=== PATIENT | male | born 1955 | race Caucasian/White ===

== ENCOUNTER 2022-04-11 12:14 | Day surgery (SDC) | payer MEDICARE, SELFPAY ==
[2022-04-06 15:07] VITALS: BMI 26.9
[2022-04-11 12:38] VITALS: BP 150/96; PULSE 57; RESP 18; TEMP 36.5; O2SAT 98
[2022-04-11] MEDS: Lactated Ringers 1,000 ML 100 ML IVCONT (12:45)
--- NOTE | 2022-04-11 13:19 | HO.ANESPROP2 ---
[facility] Past Medical History Medical History Elevated cholesterol HTN (hypertension) Family History Family history of problems with anesthesia: No Surgical History Surgical History H/O colonoscopy Hx of tonsillectomy History of Problems with Anesthesia: No Social History Social History Patient Tobacco Use Status: Current everyday Tobacco user Tobacco use type: Cigar Cigarettes Per Day: 5 Use of substances other than those prescribed or required for medical reasons: No Are you DNR?: No Advance Directives: No Advance Directives Information Provided: Yes Advance Directives on File: No Meds Allergies Allergy/AdvReac Type Severity Reaction Status Date / Time No Known Allergies Allergy Unverified 04/02/20 16:30 [No Known Allergies*] Active Medications: Current Medications Lactated Ringer's (Lr) 1,000 mls @ 100 mls/hr IVCONT .Q10H BLAYNE Last Admin: 04/11/22 12:45 Dose: 100 mls/hr Ondansetron HCl (Ondansetron Hcl 4 Mg/2 Ml Vial) 4 mg IVPUSH ONCE PRN PRN Reason: Nausea and Vomiting Sodium Biphosphate/Sodium Phosphate (Sodium Phosphate,[place]-Dibasic 133 Ml Enema) 133 ml [place] ONCE PRN PRN Reason: Poor Colonoscopy Prep Results Home Medications Medication Instructions Recorded Confirmed Last Taken Type amlodipine 5 mg-atorvastatin 10 mg 1 tab PO DAILY 04/06/22 04/06/22 04/11/22 History tablet atorvastatin 40 mg tablet 40 mg PO BEDTIME 04/06/22 04/06/22 04/11/22 History lisinopril 40 mg tablet 40 mg PO DAILY 04/06/22 04/06/22 04/11/22 History Exam Exam Date and Time: April 11, 2022 1319 Height,Weight and Vital Signs: Height 5 ft 11.5 in Weight 88.904 kg Last Vital Signs Temp 97.7 F 04/11/22 12:38 Pulse 57 04/11/22 12:38 Resp 18 04/11/22 12:38 BP 150/96 H 04/11/22 12:38 Pulse Ox 98 04/11/22 12:38 O2 Del Method 04/11/22 12:38 Airway Mallampati Class: III TM Dist: >3cm Neck ROM: Full Loose/Missing/Broken Teeth: No Heart: rrr Lungs: clear Assessment and Plan Final Anesthetic Review Family History of Problems with Anesthesia: No History of Problems with Anesthesia: No ASA Class: II Final Preanesthetic Review: No Changes in Pt Med Stat, Meds/Allgs Chart Reviewed, Consent Obtained/Reviewed and Anes Risks/Benef Reviewed Patient Risk: Low Procedure Risk: Low Anesthetic Plan Anesthetic Plan: MAC: Disposition: Standard PACU
[2022-04-11 14:05] VITALS: BP 118/65; PULSE 54; RESP 14; TEMP 36.3; O2SAT 96
--- NOTE | 2022-04-11 14:06 | P.BOP_ITS ---
Brief Operative Note Date of Service: 04/11/22 Pre-op diagnosis: Screening Post-op diagnosis: other (Diverticulosis) Procedure: Colonoscopy to the cecum and TI Surgeon: Jerod Rizvi Anesthesia: MAC Was an Lockstitch Hemmer used for this Procedure?: No Estimated blood loss (mL): 0 Pathology: none sent Condition: stable Disposition: PACU
[2022-04-11 14:20] VITALS: BP 118/65; PULSE 50; RESP 19; TEMP 36.8; O2SAT 97
[2022-04-11 14:35] VITALS: BP 153/84; PULSE 52; RESP 16; TEMP 36.8; O2SAT 97
--- NOTE | 2022-04-11 23:07 | OP_ITS ---
SURGEON: Jerod Rizvi MD INDICATIONS: The patient presents for evaluation of colorectal cancer screening. Full consent has been obtained from him for this, including risks of bleeding and perforation. PREOPERATIVE DIAGNOSIS: Colorectal cancer screening. POSTOPERATIVE DIAGNOSIS: PROCEDURE PERFORMED: Colonoscopy to the cecum and terminal ileum. ESTIMATED BLOOD LOSS: COMPLICATIONS: ANESTHESIA: Monitored anesthesia care. ASSISTANTS: SPECIMENS: POSTOPERATIVE DIAGNOSES: Colorectal cancer screening, diverticulosis, internal hemorrhoids. Somewhat limited prep. DESCRIPTION OF PROCEDURE: The patient was placed in the left lateral decubitus position. The digital rectal exam revealed no abnormalities. The Olympus video pediatric colonoscope was entered into the rectum and advanced easily to the cecum. Once in the cecum, I did identify a normal-appearing cecal pouch with appendiceal orifice, and a normal-appearing ileocecal valve. The terminal ileum was cannulated and appeared normal. The scope was withdrawn back in the colon. The entire cecum and ileocecal valve appeared normal. The scope was slowly withdrawn assessing all mucosal surfaces carefully. The preparation throughout the colon was limited in different spots in relation to some retained solid stool, which really could not be irrigated or suctioned away. The majority of the bowel was visualized and appeared normal without any sign of polyps, colitis, or angiodysplasia. There was a mild amount of sigmoid diverticulosis. In the rectum, scope was retroflexed visualizing internal hemorrhoids, but no other pathology. The rectal mucosa appeared normal. The scope was straightened and withdrawn from the patient. He tolerated the procedure well and was returned to the recovery area in stable condition. IMPRESSION: 1. Diverticulosis. 2. Internal hemorrhoids. 3. Limited bowel prep. PLAN: He has been given written instructions to obtain a Cologuard test from his primary care physician to complete the screening for colorectal cancer given today's somewhat limited exam. If that is negative, then I would recommend a followup colonoscopy in 10 years for screening. If the Cologuard test happens to be positive, I would then recommend a colonoscopy later this year with a better clean out. MD JULISSA Horan/LINCOLN / [id number]
== END 2022-04-11 15:10 | disposition home or self-care (01) ==
PROVIDERS: PCP Internal Medicine; Visit Provider Internal Medicine
PROC: 0DJD8ZZ Inspection of Lower Intestinal Tract, Via Natural or Artificial Opening Endoscopic (ICD-10-PCS; CPT 45378; principal; 2022-04-11 13:20)
DX: Z12.11 Encounter for screening for malignant neoplasm of colon (principal); K57.30 Diverticulosis of large intestine without perforation or abscess without bleeding; K64.8 Other hemorrhoids; Z91.19 Patient's noncompliance with other medical treatment and regimen; I10 Essential (primary) hypertension; E78.5 Hyperlipidemia, unspecified; Z79.899 Other long term (current) drug therapy; F17.210 Nicotine dependence, cigarettes, uncomplicated
CPT/HCPCS: G0121

== ENCOUNTER → 2022-05-04 12:54 | Outpatient (REF) | payer MEDICARE, SELFPAY ==
--- NOTE | 2022-05-04 13:00 | CA_ITS ---
Transthoracic Echocardiogram Patient (Last, First, Middle): Nadir Santana J Gender: Male Date of : 1955 Age: 66 Procedure Date: 05/04/2022 Procedure Type: Transthoracic Echocardiogram Location: OP Height: 180.34 cm Weight: 88. kg BSA: 2.08 m2 Heart Rate: 56 bpm BP: 150 / 78 mmHg Cost Control Analyst: SB Referring MD: Kiran Francis MD Symptoms: R01.1 CARDIAC MURMER, UNSPECIFIED Study Quality: Adequate ECG Rhythm: Bradycardia Conclusions: - The left ventricular systolic function is normal. The calculated ejection fraction is 71% by biplane method. - There is moderate calcification of the aortic valve. There is mild aortic valve stenosis. Findings Left Ventricle Normal left ventricular cavity size. There is normal left ventricular wall thickness. The left ventricular systolic function is normal. The calculated ejection fraction is 71% by biplane method. There is no evidence of regional wall motion abnormalities. Diastolic function is normal for age. LV peak GLS -20.1%. Right Ventricle Normal right ventricular cavity size and systolic function. Atria Both atria are normal in size. Aortic Valve There is moderate calcification of the aortic valve. There is mild aortic valve stenosis. There is no aortic valve regurgitation. Mitral Valve There is mild anterior mitral leaflet thickening. There is no mitral valve regurgitation. There is no mitral valve stenosis. Pulmonic Valve The pulmonic valve is likely normal. Tricuspid Valve Normal tricuspid valve structure. There is mild tricuspid valve regurgitation. There is no evidence of pulmonary hypertension. Great Vessels The asc aorta is normal in size. Venous The inferior vena cava is normal in size and collapses greater than 50% with inspiration. Pericardium/Pleural There is no evidence of pericardial effusion. Prior Study Comparison No significant change compared to prior study dated: 09/23/2019. Measurements 2D Linear Measurements IVSd: 0.97 0.6-0.9/0.6-1.0 cm LVIDd: 5.25 3.9-5.3/4.2-5.9 cm LVIDd Index: 2.52 2.4-3.2/2.2-3.1 cm/m2 LVIDs: 2.83 2.0-3.6 cm LVPWd: 1.00 0.7-1.1 cm LA Diam: 4.10 2.7-3.8/3.0-4.0 cm LAIDs Index: 1.97 1.5-2.3 cm/m2 LV Mass: 240.12 67-162/88-224 g LV Mass Index: 115.44 43-95/49-115 g/m2 LVOT Diam: 2.00 3.0+(-)1.3 cm 2D Systolic Function EF 4C: 65.50 >55% EF 2C: 75.30 >55% EF BiP: 70.70 >55% Mitral Valve MV Pk E: 0.87 MV PK A: 0.93 MV Decel Time: 251.00 E/A: 0.90 E'Lateral: 10.10 E'Medial: 8.05 E/E' Med: 10.70 E/E' Lat: 8.60 PHT: 73.00 MVA PHT: 3.01 Decel Bartholomew: 3.45 Aortic Valve AoV Pk Pio: 3.07 AoV Mn Pio: 1.97 AoV VTI: 0.67 AoV Pk Grad: 38.00 Aov Mn Grad: 18.00 RAYSHAWN Cont.VTI: 1.38 LVOT LVOT Pk Pio: 1.62 LVOT Mn Pio: 0.91 LVOT VTI: 0.29 LVOT Pk Grad: 10.00 LVOT Mn Grad: 4.00 LVOT Diam: 2.00 LVOT Area: 3.14 Diastolic Function MV Pk E: 0.87 MV Pk A: 0.93 E/A: 0.90 E'Medial: 8.05 E/E' Med: 10.70 E' Laterial: 10.10 E/E' Lat: 8.60 Right Ventricle TAPSE (mm): 26.20 TVS' Pio: 14.60 Tricuspid Valve TR Pk Pio: 2.25 TR Pk Grad: 20.00 RA Press: 3.00 RVSP: 23.00 Great Vessels Aorta Sinus of Valsalva: 3.20 2.0-3.5 cm Ao Asc: 3.50 2.1-3.4 cm Pulmonary Veins Pulm Vein S/D 1.00 Pulmonary Valve PV Pk Pio: 1.16 Peak PV Grad: 5.00 Updated in Other Vendor System with Status of Final Manny Alexander MD electronically signed on 05/04/2022 2:45:47 PM with status of Final
== END ==
LOC: HO.CARD 12:54
PROVIDERS: PCP Internal Medicine; Visit Provider Internal Medicine
DX: R01.1 Cardiac murmur, unspecified (principal)
CPT/HCPCS: 93306; 93356

== ENCOUNTER 2023-04-03 08:15 | Outpatient (REF) | payer MEDICARE, SELFPAY ==
[2023-04-03 09:22] LABS: Anion Gap 8 (12-20); Blood Urea Nitrogen 17 mg/dL (9-16); Calcium 9.2 mg/dL (8.4-10.2); Carbon Dioxide 28 mmol/L (22-29); Chloride 108 mmol/L (96-108); Estimated Glomerular Filt Rate > 60; Glucose Random 99 mg/dL (60-115); Potassium 4.4 mmol/L (3.3-5.1); Sodium 140 mmol/L (135-145)
== END 2023-04-03 08:16 | disposition home or self-care (01) ==
LOC: HO.LAB 08:15
PROVIDERS: PCP Internal Medicine; Visit Provider Internal Medicine
DX: Z13.89 Encounter for screening for other disorder (principal)
CPT/HCPCS: 36415; 80048

== ENCOUNTER 2023-04-05 11:31 | Outpatient (AMB) | payer MEDICARE, SELFPAY ==
--- OUTSIDE RECORDS SUMMARY | 2023-04-05 11:33 | XMS_ITS | Patient Health Record ---
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 Role Phone Kiran Francis MD Primary Care Provider Jerod Wise Unavailable [phone] ALLERGIES No Known Allergies REASON FOR REFERRAL No Information MEDICATIONS Medication SIG (Take, Route, Frequency, Duration) Notes Start Date End Date Status amLODIPine-Atorvastatin 5-10 MG 1 tablet Orally Once a day Active Atorvastatin Calcium 40 MG 1 tablet Oral ly Once a day Active Lisinopril 40 MG 1 tablet Orally Once a day Active IMMUNIZATIONS Vaccine Route Administration Date Status Comme nts Flu vaccine no Preserv 3 and > Unknown 04/29/2021 Admin istered SOCIAL HISTORY Tobacco Use: Social History Observation Description Date Details (start date - stop date) Current Smoker NA - NA Sex Assigned At : Social History Observation Description Sex Assigned At Unknown Tobacco Use/Smoking Question Answer Notes Patient is a current smoker How often do you smoke cigarettes? some days, bu t not every day How many cigarettes a day do you smoke? 5 or les s Alcohol Screen Question Answer Notes Did you have a drink containing alcohol in the p ast year? No Points 0 Interpretation Negative PROBLEMS Problem Type ICD Code Onset Dates Problem Status W/U Status Risk SNOMED Code Notes Problem Colon cancer screening (Z12.11) Active confirmed Colon cancer screening (375326711) Problem Preprocedural examination (Z01.818) Active confirmed Preprocedural examination (751582973098615) Problem Diverticulosis of colon (K57.30) Active confirmed Diverticulosi s of colon (217324087) Encounters Encounter Location Date Provider Diagnosis [facility] Outpatient [address] [place] [address] [phone] 04/11/2022 Jerod Rizvi Colon cancer screeni ng Z12.11 ; Diverticulosis of colon K57.30 and Internal hemorrhoids K64.8 [facility] [address] [place] [address] 04/18/2022 Jerod Rizvi ASSESSMENTS Encounter Date Diagnosis Assessment Notes Treatment Notes Treatment Clinical Notes 04/11/2022 Colon cancer screening (ICD-10 - Z12.11) 04/11/2022 Diverticulosis of colon (ICD-10 - K57.30) 04/11/2022 Internal hemorrhoids (ICD-10 - K64.8) PLAN OF TREATMENT Future Test Test Name Order Date COLONOSCOPY 03/01/2022 Insurance Providers Payer Name Payer Address Payer Phone Subscriber Number Group Number Insured Name Patient Relationship to Insured Coverage Start Date Coverage End Date MEDICARE OF [place] [address] [place] [address] [id number] KARI CLAY Self - patient is the insured MEDEX ATTN CLAIMS [address] [place] [address] [id number] KARI CLAY Self - patient is the insured MEDICAL (GENERAL) HISTORY Medical History History ICD Code Negative screening colonoscopy in 2007 HTN Hyperlipidemia Denies [place],DM,CVA,Lung disease,renal dise ase Surgical History Surgery Date(Month/Year) Tonsillectomy
--- NOTE | 2023-04-05 12:29 | MHC.OFFWIV ---
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 he states he had 4 stents put in last week and put on some new meds that he is unsure if the hives are due to these changes. He also mentioned that he tried a new soap last night. 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 Patient had a stent placed for coronary artery disease a week ago. He was started on a statin, antiplatelet agent. Medications was started a week ago Yesterday he suddenly developed a rash on the torso of his body. Reports symptoms of itching. PFSH Medical History Elevated cholesterol HTN (hypertension) Surgical History H/O colonoscopy Hx of tonsillectomy Social History Patient Tobacco Use Status: Current everyday Tobacco user Tobacco use type: Cigar Cigarettes Per Day: 5 Physical Exam Vital Signs: Last Vital Signs Pulse 53 04/05/23 12:31 BP 130/70 04/05/23 12:31 Pulse Ox 98 04/05/23 12:31 Oxygen Delivery Method Room Air 04/05/23 12:31 Const General: cooperative and healthy appearing Nutritional Appearance: well nourished Orientation/consciousness: patient oriented x3 Limitations: no limitations HEENT Head: Yes normal to inspection Eyes General: appearance normal, both eyes and all related structures Neck Neck: Yes normal visual inspection Chest Chest palpation & inspection: normal palpation of entire chest wall Resp Effort & Inspection: normal respiratory effort Skin Other: Maculopapular rash over the abdomen and torso. No vesicles or pustules seen. Neuro General: patient oriented x3 Assessment & Plan Assessment & Plan (1) Rash: Code(s): R21 - Rash and other nonspecific skin eruption Plan: Most likely irritant dermatitis. Prednisone ordered. If symptoms do not improve, to follow-up here. Coding Level of Care Code New Pt Level 3 (38280) Diagnoses Rash R21
[2023-04-05 12:31] VITALS: BP 130/70; PULSE 53; O2SAT 98
== END 2023-04-05 13:29 | disposition home or self-care (01) ==
PROVIDERS: PCP Internal Medicine; Visit Provider Internal Medicine
DX: R21 Rash and other nonspecific skin eruption (principal)
CPT/HCPCS: 99203

== ENCOUNTER 2023-06-02 08:09 | Outpatient (REF) | payer MEDICARE, SELFPAY ==
[2023-06-02 08:27] LABS: MANUAL DIFF FLAG NO
[2023-06-02 08:37] LABS: Basophils Percent Auto 0.5 % (0-2); Eosinophils Absolute Auto 0.2 X10*3/uL (0.0-0.4); Eosinophils Percent Auto 2.8 % (0-4); Hematocrit 40.9 % (42.0-52.0); Hemoglobin 13.9 g/dl (14.0-18.0); Imm Gran Abs Auto 0.02 X10*3/uL (0.00-0.03); Imm Gran Pct Auto 0.3 % (0.0-0.4); Lymphocytes Absolute Auto 1.2 X10*3/uL (1.2-4.9); Lymphocytes Percent Auto 18.7 % (20-40); Mean Corpuscular Hemoglobin 34.5 pg (27.0-33.0); Mean Corpuscular Volume 101.5 fL (80.0-98.0); Mean Platelet Volume 8.9 fL (9.4-12.4); Monocytes Percent Auto 15.1 % (2-11); Neutrophils Percent Auto 62.6 % (45-73); Platelet Count 143 X10*3/uL (160-400); Red Blood Count 4.03 X10*6/uL (4.60-5.80); White Blood Count 6.4 X10*3/uL (4.8-10.8)
[2023-06-02 09:12] LABS: Alanine Aminotransferase 54 U/L (0-40); Alkaline Phosphatase 96 U/L (39-117); Anion Gap 9 (12-20); Aspartate Amino Transferase 40 U/L (5-37); Blood Urea Nitrogen 17 mg/dL (9-16); Carbon Dioxide 29 mmol/L (22-29); Chloride 108 mmol/L (96-108); Cholesterol 136 mg/dL (<200); Estimated Glomerular Filt Rate > 60; Glucose Fasting 100 mg/dL (60-99); HDL Cholesterol 32 mg/dL (>40); LDL Cholesterol Calculated 90 mg/dL (<100); Potassium 4.3 mmol/L (3.3-5.1); Sodium 142 mmol/L (135-145); Total Protein 6.7 g/dL (6.5-8.0); Triglycerides 72 mg/dL (<150)
== END 2023-06-02 08:10 | disposition home or self-care (01) ==
LOC: HO.LAB 08:09
PROVIDERS: PCP Internal Medicine; Visit Provider Internal Medicine
DX: I25.10 Atherosclerotic heart disease of native coronary artery without angina pectoris (principal); E78.00 Pure hypercholesterolemia, unspecified; I10 Essential (primary) hypertension
CPT/HCPCS: 36415; 80053; 80061; 85025

== ENCOUNTER 2023-09-06 14:15 | Outpatient (REF) | payer MEDICARE, SELFPAY ==
[2023-09-06 16:06] LABS: MANUAL DIFF FLAG NO
[2023-09-06 16:12] LABS: Basophils Percent Auto 0.4 % (0-2); Eosinophils Absolute Auto 0.1 X10*3/uL (0.0-0.4); Eosinophils Percent Auto 2.3 % (0-4); Hematocrit 39.1 % (42.0-52.0); Hemoglobin 13.6 g/dl (14.0-18.0); Imm Gran Abs Auto 0.02 X10*3/uL (0.00-0.03); Imm Gran Pct Auto 0.4 % (0.0-0.4); Lymphocytes Absolute Auto 1.5 X10*3/uL (1.2-4.9); Lymphocytes Percent Auto 29.1 % (20-40); Mean Corpuscular HGB Conc 34.8 g/dl (31.0-36.0); Mean Corpuscular Hemoglobin 34.7 pg (27.0-33.0); Mean Corpuscular Volume 99.7 fL (80.0-98.0); Mean Platelet Volume 9.5 fL (9.4-12.4); Monocytes Absolute Auto 0.6 X10*3/uL (0.1-1.2); Monocytes Percent Auto 11.1 % (2-11); Neutrophils Percent Auto 56.7 % (45-73); Platelet Count 166 X10*3/uL (160-400); Red Blood Count 3.92 X10*6/uL (4.60-5.80); Red Cell Distribution Width 13.2 % (11.0-16.0); White Blood Count 5.3 X10*3/uL (4.8-10.8)
[2023-09-06 16:29] LABS: Alanine Aminotransferase 38 U/L (0-40); Alkaline Phosphatase 97 U/L (39-117); Anion Gap 12 (12-20); Aspartate Amino Transferase 30 U/L (5-37); Bilirubin Total 0.7 mg/dL (0.0-1.0); Blood Urea Nitrogen 22 mg/dL (9-16); Calcium 9.1 mg/dL (8.4-10.2); Carbon Dioxide 28 mmol/L (22-29); Chloride 108 mmol/L (96-108); Estimated Glomerular Filt Rate > 60; Glucose Random 115 mg/dL (60-115); Iron 129 mcg/dL (45-160); Percent Iron Saturation 50 % (15-50); Potassium 4.4 mmol/L (3.3-5.1); Sodium 144 mmol/L (135-145); Total Iron Binding Capacity 259 mcg/dL (228-428); Total Protein 6.6 g/dL (6.5-8.0); Unsaturated Iron Binding 130 ug/dL
== END 2023-09-06 14:16 | disposition home or self-care (01) ==
LOC: HO.HMGCLDS 14:15
PROVIDERS: PCP Internal Medicine; Visit Provider Internal Medicine
DX: I10 Essential (primary) hypertension (principal); I25.10 Atherosclerotic heart disease of native coronary artery without angina pectoris; R79.89 Other specified abnormal findings of blood chemistry; E78.00 Pure hypercholesterolemia, unspecified; D64.9 Anemia, unspecified
CPT/HCPCS: 36415; 80053; 83540; 85025

== ENCOUNTER 2024-09-05 12:43 | Outpatient (REF) | payer MEDICARE, SELFPAY ==
--- OUTSIDE RECORDS SUMMARY | 2024-09-05 13:39 | XMS_ITS | Patient Health Record ---
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 Name Role Phone Kiran Francis MD Primary Care Provider Avery ring Rizvi Jerod Unavailable [phone] ALLERGIES No Known Allergies REASON FOR REFERRAL [...] screening (Z12.11) Active confirmed Colon cancer screening (391873798) Problem Preprocedural examination (Z01.818) Active confirmed Preprocedural examination (303439520654407) Problem Diverticulosis of colon (K57.30) Active confirmed Diverticulosi s of colon (192017619) PLAN OF TREATMENT Future Test Test Name Order Date COLONOSCOPY 03/01/2022 Insurance Providers Payer Name Payer Address Payer Phone Subscriber Number Group Number Insured Name Patient Relationship to Insured Coverage Start Date Coverage End Date MEDICARE OF [place] [address] [place] [id number] KARI CLAY Self - patient is the insured MEDEX ATTN CLAIMS [address] [place] [address] [id number] KARI CLAY Self - patient is the insured MEDICAL (GENERAL) HISTORY Medical History History ICD Code Negative screening colonoscopy in 2007 HTN Hyperlipidemia Denies [place],DM,CVA,Lung disease,renal dise ase Surgical History Surgery Date(Month/Year) Tonsillectomy
[2024-09-05 14:12] LABS: MANUAL DIFF FLAG NO
[2024-09-05 14:12] LABS: Appearance Urine Clear; Color Urine Yellow; Glucose Urine UA Negative (Negative); Leukocyte Esterase Urine Negative (Negative); Nitrite Urine Negative (Negative); Specific Gravity - Urine 1.025 (1.005-1.025); Urine Blood Negative (Negative); Urine Ketones Negative (Negative); Urine Protein Negative (Neg-Trace)
[2024-09-05 14:15] LABS: Bacteria Urine None Seen (None Seen); Hyaline Casts Urine 0-2 /LPF (0-2); RBC Urine 0-2 /HPF (0-2); Squamous Epithelial Cell Urine 0-2 /HPF (0-2); WBC Urine 0-5 /HPF (0-5)
[2024-09-05 14:20] LABS: Basophils Percent Auto 0.4 % (0-2); Eosinophils Absolute Auto 0.1 X10*3/uL (0.0-0.4); Eosinophils Percent Auto 1.6 % (0-4); Hematocrit 38.5 % (42.0-52.0); Hemoglobin 13.2 g/dl (14.0-18.0); Imm Gran Abs Auto 0.02 X10*3/uL (0.00-0.03); Imm Gran Pct Auto 0.4 % (0.0-0.4); Lymphocytes Absolute Auto 1.9 X10*3/uL (1.2-4.9); Lymphocytes Percent Auto 33.2 % (20-40); Mean Corpuscular HGB Conc 34.3 g/dl (31.0-36.0); Mean Corpuscular Volume 102.1 fL (80.0-98.0); Mean Platelet Volume 9.1 fL (9.4-12.4); Monocytes Absolute Auto 0.6 X10*3/uL (0.1-1.2); Monocytes Percent Auto 10.3 % (2-11); Neutrophils Percent Auto 54.1 % (45-73); Platelet Count 148 X10*3/uL (160-400); Red Blood Count 3.77 X10*6/uL (4.60-5.80); Red Cell Distribution Width 13.2 % (11.0-16.0); White Blood Count 5.6 X10*3/uL (4.8-10.8)
[2024-09-05 14:26] LABS: Alanine Aminotransferase 37 U/L (0-40); Albumin Level 3.9 g/dL (3.5-5.0); Alkaline Phosphatase 95 U/L (39-117); Anion Gap 8 (12-20); Aspartate Amino Transferase 37 U/L (5-37); Bilirubin Total 0.9 mg/dL (0.0-1.0); Blood Urea Nitrogen 15 mg/dL (9-16); Calcium 9.2 mg/dL (8.4-10.2); Carbon Dioxide 28 mmol/L (22-29); Chloride 110 mmol/L (96-108); Cholesterol 106 mg/dL (<200); Estimated Glomerular Filt Rate > 60; Glucose Fasting 84 mg/dL (60-99); HDL Cholesterol 36 mg/dL (>40); LDL Cholesterol Calculated 60 mg/dL (<100); Potassium 4.4 mmol/L (3.3-5.1); Sodium 142 mmol/L (135-145); Total Protein 6.6 g/dL (6.5-8.0); Triglycerides 53 mg/dL (<150)
[2024-09-05 14:45] LABS: Prostate Specific Antigen Scr 0.58 ng/mL (<0.05-4.0)
== END 2024-09-05 12:44 | disposition home or self-care (01) ==
LOC: HO.CHCLDS 12:43
PROVIDERS: Visit Provider Internal Medicine
DX: I10 Essential (primary) hypertension (principal); E78.00 Pure hypercholesterolemia, unspecified; D64.9 Anemia, unspecified; I25.10 Atherosclerotic heart disease of native coronary artery without angina pectoris; Z12.5 Encounter for screening for malignant neoplasm of prostate
CPT/HCPCS: 36415; 80053; 80061; 81001; 84153; 85025

== ENCOUNTER 2024-12-10 16:17 | Outpatient (AMB) | payer MEDICARE, SELFPAY ==
--- NOTE | 2024-12-10 16:22 | MHC.PC.OV ---
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 by: Self / Same As Patient Allergies No Known Allergies [No Known Allergies*] Allergy (Verified 12/10/24 16:23) Medication List - Last Reconciled 12/10/24 by MOO Mccabe amlodipine 5 mg PO DAILY aspirin 81 mg PO DAILY atorvastatin 80 mg PO BEDTIME carvedilol 6.25 mg PO BID ezetimibe 10 mg PO DAILY lisinopril 40 mg PO DAILY multivitamin 1 tab PO DAILY ticagrelor (Brilinta) 90 mg PO BID Tobacco use date assessed: 12/10/24 Fall risk assessment: No Falls in past year Last assessed Fall Risk: 12/10/24 Dental Screening Dental Screen Date: 12/10/24 Did you have a dental visit in the last 12 months?: Yes Did you have a dental problem in the last 6 months where you did not have access to dental care?: No HPI HPI Comments History of Present Illness Details 69-year-old male with history of cigarette smoking, coronary artery disease with history NSTEMI, mild aortic stenosis, hypertension, hyperlipidemia, renal artery stenosis and celiac artery occlusion presents to the office today for management of chronic conditions and to establish care. Hypertension-compliant with amlodipine 5 mg daily, carvedilol 6.25 mg twice daily, and lisinopril 40 mg daily. Blood pressure in the office controlled at 120/68. Hyperlipidemia-last LDL 60. Compliant with atorvastatin 80 mg nightly and Zetia 10 mg daily. Coronary artery disease- hx PCI AC x3 to RCA 03/2023. Following with [facility]. Continues on baby aspirin and Brilinta twice daily as well as carvedilol and atorvastatin. Since last NSTEMI 06/2023, no episodes of anginal chest pain. He has no functional limitations. Last colonoscopy-03/2022, Dr. Rizvi. Limited exam- recommended cologuard and if negative 10 year follow up. Does not appear this was ordered He is reporting pain in the distal aspact of the L great toe. No purulent drainage, erythema, warmth. Feels a lump Also reporting pain of the 1st MTP ongoing for years. Reports prior injury while sliding down a fire pole. He reports pain most pronounced when pivoting swinging a golf club. ROS: General: No fevers, malaise, unintentional weight loss Cardiovascular: No chest pain, palpitations, or leg edema Respiratory: No shortness of breath, wheezing, cough MSK: see hpi Neuro: No headaches, weakness, paresthesias Skin: No rashes or lesions EXAM: Constitutional - Awake and Alert, No apparent distress Eyes - PERRLA, EOMI Cardiovascular - S1S2, RRR, No edema Respiratory - Normal lung expansion, Normal respiratory effort, No respiratory distress, CTA bilaterally Extremities - no calf tenderness bilaterally, no swelling Musculoskeletal - ttp R 1st MTP joint without any overlying swelling, erythema, warmth. No bony abnormality. Left great toe-evidence of ingrown toenail which was partially removed during the visit with some improvement in pain. No purulent drainage or bleeding. 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 Father No problems noted. Social History Housing: House Patient Tobacco Use Status: Former Tobacco user Tobacco use type: Cigar Cigarettes Per Day: 5 e-Cigarette/Vaping Use: Former Use service: No Current occupational status: retired Cognitive needs: No Hearing needs: No Vision needs: Yes (reading glasses) Questionnaire PHQ-9 Over the last 2 weeks, how often have you been bothered by any of the following problems? 1. Little interest or pleasure in doing things: not at all 2. Feeling down, depressed, or hopeless: not at all 3. Trouble falling or staying asleep, or sleeping too much: not at all 4. Feeling tired or having little energy: not at all 5. Poor appetite or overeating: not at all 6. Feeling bad about yourself - or that you are a failure or have let yourself or your family down: not at all 7. Trouble concentrating on things, such as reading the newspaper or watching television: not at all 8. Moving or speaking so slowly that other people could have noticed. Or the opposite - being so fidgety or restless that you have been moving around a lot more than usual: not at all 9. Thoughts that you would be better off or of hurting yourself in some way: not at all Total score: 0 Source: Developed by Drs. Jerod Fuentes, Kalee Abdi, David Rizzo and colleagues, with an educational jericho from [employer]. Thrive Questionnaire Date Thrive assessed: 12/10/24 I am a: Patient Within the past 12 months, did the food you bought not last and you didn't have the money to get more?: Never true Within the past 12 months, did you worry whether your food would run out before you got money to buy more?: Never true Do you have trouble paying for medicines?: No Do you have trouble getting transportation to medical appointments?: No Do you have trouble paying your heating and electricity bill?: No Do you have trouble taking care of your child, family member or friend?: No Do you have trouble with day-to-day activities such as bathing, preparing meals, shopping, managing finances, etc.?: No Are you currently unemployed and looking for a job?: No Are you interested in more education?: No THRIVE Score: 0 AUDIT C Alcohol Use Questionnaire (AUDIT-C) 1. How often do you have a drink containing alcohol?: Monthly or less 2. How many drinks containing alcohol do you have on a typical day when you are drinking?: 1 or 2 3. How often do you have six or more drinks on one occasion?: Less than monthly Total Score: 2 JESSICA-7 AMB Questionnaire JESSICA-7 Date JESSICA - 7 assessed: 12/10/24 Feeling nervous, anxious, or on edge: 0 = Not at all Not being able to stop or control worryin = Not at all Worrying too much about different things: 0 = Not at all Trouble relaxin = Not at all Being so restless that it is hard to sit still: 0 = Not at all Becoming easily annoyed or irritable: 0 = Not at all Feeling afraid as if something awful might happen: 0 = Not at all Total JESSICA-7 score (0-4 normal; 5-9 mild; 10-14 moderate; 15-21 severe): 0 Source: Developed by Drs. Jerod Fuentes, Kalee Abdi, David Rizzo and colleagues, with an educational jericho from [employer]. Physical exam (Primary Care) Vital Signs: Last Vital Signs Temp 97.1 F 12/10/24 16:26 Pulse 52 12/10/24 16:26 BP 120/68 12/10/24 16:26 Pulse Ox 98 12/10/24 16:26 Oxygen Delivery Method Room Air 12/10/24 16:26 BMI result Body Mass Index 28.8 Tobacco/Smoking Status: Tobacco use Status Tobacco use date assessed 12/10/24 12/10/24 16:24 Patient Tobacco Use Status Former Tobacco user 12/10/24 16:34 Tobacco use type Cigar 12/10/24 16:24 e-Cigarette/Vaping Use Former Use 12/10/24 16:34 PHQ-9: PHQ-9 Score PHQ-9: Total score 0 12/10/24 16:40 Thrive Assessment: Date of Thrive Assessment Date Thrive assessed 12/10/24 12/10/24 16:24 Coding Level of Care Code Est Pt Level 4 (54907) Complex EM visit Add On G2211 Diagnoses Elevated cholesterol E78.00 HTN (hypertension) I10 CAD (coronary artery disease) I25.10 Ingrowing nail, left great toe L60.0 Pain of right great toe M79.674 Assessment & Plan Assessment & Plan (1) Elevated cholesterol: Code(s): E78.00 - Pure hypercholesterolemia, unspecified Category: Medical Plan: Lipid panel reviewed and LDL is controlled at 60. Continue atorvastatin 80 mg nightly and Zetia 10 mg daily. Recommend diet low in saturated fats and highly processed foods. (2) HTN (hypertension): Code(s): I10 - Essential (primary) hypertension Category: Medical Plan: Controlled in office today. Continue amlodipine 5 mg daily, carvedilol 6.25 mg twice daily, lisinopril 40 mg daily. Reviewed most recent renal function electrolyte levels which are stable/within normal limits. Continue low-sodium diet. (3) CAD (coronary artery disease): Comment: hx PCI AC x3 to RCA 03/2023 Code(s): I25.10 - Atherosclerotic heart disease of [place] coronary artery without angina pectoris Category: Medical Plan: Stable without any recent anginal chest pain. Reviewed last note from [facility], continue following as scheduled. Continue aspirin 81 mg daily and Brilinta 91 mg twice daily. Continue carvedilol 6.25 mg twice daily and statin. (4) Ingrowing nail, left great toe: Code(s): L60.0 - Ingrowing nail Category: Medical Plan: Some improvement in symptomatic pain with partial excision of ingrown toenail in office. However, if preferred to podiatry for further management are ingrown toenail (5) Pain of right great toe: Code(s): M79.674 - Pain in right toe(s) Category: Medical Plan: X-ray of the right great toe ordered. Analgesia as needed. Plan Follow-up in 6 months. Labs to be completed prior to visit. Reviewed most recent labs. X-ray of the right great toe ordered. Follow-up with Podiatry and Cardiology. Reviewed last colonoscopy note, Cologuard test ordered. Orders: Orders XR toe RT min 2V 12/10/24 L60.0 - Ingrowing nail, M79.674 - Pain in right toe(s) Basic Metabolic Panel 6 Months E78.00 - Pure hypercholesterolemia, unspecified, I10 - Essential (primary) hypertension Lipid Panel 6 Months E78.00 - Pure hypercholesterolemia, unspecified, I10 - Essential (primary) hypertension Referrals Podiatry Referral L60.0 - Ingrowing nail, M79.674 - Pain in right toe(s) Cologuard Test Z12.11 - Encounter for screening for malignant neoplasm of colon, Z12.12 - Encounter for screening for malignant neoplasm of rectum Medications: New atorvastatin 80 mg PO BEDTIME 90 tabs 1RF amlodipine 5 mg PO DAILY 90 tabs 1RF carvedilol 6.25 mg PO BID 180 tabs 1RF
[2024-12-10 16:26] VITALS: BP 120/68; PULSE 52; TEMP 36.2; O2SAT 98; BMI 28.8
== END 2024-12-10 17:24 | disposition home or self-care (01) ==
LOC: HO.HMCHD 16:17
PROVIDERS: PCP Internal Medicine; Visit Provider Physician Assistant
DX: E78.00 Pure hypercholesterolemia, unspecified (principal); I10 Essential (primary) hypertension; I25.10 Atherosclerotic heart disease of native coronary artery without angina pectoris; L60.0 Ingrowing nail; M79.674 Pain in right toe(s)

== ENCOUNTER → 2024-12-10 16:17 | Outpatient (BNVA) | payer MEDICARE, SELFPAY | PROVIDERS: PCP Internal Medicine; Visit Provider Physician Assistant | DX: E78.00 Pure hypercholesterolemia, unspecified (principal); I10 Essential (primary) hypertension; I25.10 Atherosclerotic heart disease of native coronary artery without angina pectoris; L60.0 Ingrowing nail; M79.674 Pain in right toe(s); Z79.82 Long term (current) use of aspirin; Z79.899 Other long term (current) drug therapy | CPT/HCPCS: 96127; 99212 ==

== ENCOUNTER 2025-05-23 08:10 | Outpatient (REF) | payer MEDICARE, SELFPAY ==
--- NOTE | ~2025-05-23 | XR_ITS ---
EXAMINATION: XR FOOT, RIGHT CLINICAL INFORMATION: M79.674 - Pain in right toe(s) COMPARISON: None available. TECHNIQUE: AP, lateral, and oblique views of the right foot. FINDINGS: No fracture, dislocation, or suspicious bone lesion. Normal bone mineralization. Normal alignment. Moderate to severe osteoarthrosis is present in the first MTP joint, with severe joint space loss, subchondral sclerosis, and marginal osteophytic spurring. There are mild degenerative changes involving the dorsal midfoot with spurring of the anterior talus. Remainder of the joint spaces appear grossly preserved. There is an os navicularis. There is a minimal pes planus. No soft tissue abnormalities. XR/XR foot RT min 3V IMPRESSION: 1. No acute bony or soft tissue abnormality. 2. 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 Mild midfoot degenerative arthritis. 3. Very mild pes planus. Electronically signed by: Fercho Frey MD 05/23/2025 09:25 AM ELIDA
[2025-05-23 09:35] LABS: Anion Gap 9 (12-20); Blood Urea Nitrogen 19 mg/dL (9-16); Calcium 9.3 mg/dL (8.4-10.2); Carbon Dioxide 30 mmol/L (22-29); Chloride 108 mmol/L (96-108); Cholesterol 122 mg/dL (<200); Estimated Glomerular Filt Rate > 60; HDL Cholesterol 40 mg/dL (>40); Potassium 4.6 mmol/L (3.3-5.1); Sodium 142 mmol/L (135-145); Triglycerides 57 mg/dL (<150)
== END 2025-05-23 08:11 | disposition home or self-care (01) ==
LOC: HO.XRAY 08:10
PROVIDERS: PCP Physician Assistant; Visit Provider Physician Assistant
DX: I10 Essential (primary) hypertension (principal); E78.00 Pure hypercholesterolemia, unspecified; I25.10 Atherosclerotic heart disease of native coronary artery without angina pectoris; M79.674 Pain in right toe(s)
CPT/HCPCS: 36415; 73630; 80048; 80061; 99212

== ENCOUNTER 2025-05-23 08:10 | Outpatient (AMB) | payer MEDICARE, SELFPAY ==
--- NOTE | 2025-05-23 07:30 | A.OFFPC_ITS ---
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 Hypertension-compliant with amlodipine 5 mg daily, carvedilol 6.25 mg twice daily, and lisinopril 40 mg daily. Blood pressure in the office controlled at 132/60. Hyperlipidemia-last LDL 60. Compliant with atorvastatin 80 mg nightly and Zetia 10 mg daily. Coronary artery disease- hx PCI AC x3 to RCA 03/2023. Following with [facility]. Continues on baby aspirin and as well as carvedilol and atorvastatin. Brilinta has been discontinued. Since last NSTEMI 06/2023, no episodes of anginal chest pain. He has no functional limitations. Health maintenance: Last colonoscopy-03/2022, Dr. Rizvi. Limited exam- recommended cologuard and if negative 10 year follow up. 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: General: No fevers, malaise, unintentional weight loss Cardiovascular: No chest pain, palpitations, or leg edema Respiratory: No shortness of breath, wheezing, cough MSK: see hpi Neuro: No headaches, weakness, paresthesias Skin: No rashes or lesions EXAM: Constitutional - Awake and Alert, No apparent distress Eyes - PERRLA, EOMI Cardiovascular - S1S2, RRR, No edema Respiratory - Normal lung expansion, Normal respiratory effort, No respiratory distress, CTA bilaterally Extremities - no calf tenderness bilaterally, no swelling Musculoskeletal - ttp R 1st MTP joint without any overlying swelling, erythema, warmth. No bony abnormality. Left great toe-evidence of ingrown toenail which was partially removed during the visit with some improvement in pain. No purulent drainage or bleeding. 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 Father No problems noted. Social History Housing: House Patient Tobacco Use Status: Former Tobacco user Tobacco use type: Cigar Cigarettes Per Day: 5 e-Cigarette/Vaping Use: Former Use service: No Current occupational status: retired Cognitive needs: No Hearing needs: No Vision needs: Yes (reading glasses) Questionnaire Thrive Questionnaire Date Thrive assessed: 12/10/24 JESSICA-7 AMB Questionnaire JESSICA-7 Date JESSICA - 7 assessed: 12/10/24 Source: Developed by Drs. Jerod Fuentes, Kalee Abdi, David Rizzo and colleagues, with an educational jericho from [employer]. Physical exam (Primary Care) Tobacco/Smoking Status: Tobacco use Status Tobacco use date assessed 12/10/24 05/23/25 07:31 Patient Tobacco Use Status Former Tobacco user 05/23/25 07:31 Tobacco use type Cigar 05/23/25 07:31 e-Cigarette/Vaping Use Former Use 05/23/25 07:31 Thrive Assessment: Date of Thrive Assessment Date Thrive assessed 12/10/24 05/23/25 07:31 Coding Level of Care Code Est Pt Level 4 (08460) Complex EM visit Add On G2211 Diagnoses Elevated cholesterol E78.00 HTN (hypertension) I10 CAD (coronary artery disease) I25.10 Pain of right great toe M79.674 Assessment & Plan Assessment & Plan (1) Elevated cholesterol: Code(s): E78.00 - Pure hypercholesterolemia, unspecified Category: Medical Plan: Lipid panel reviewed and LDL is controlled at 60. Continue atorvastatin 80 mg nightly and Zetia 10 mg daily. Recommend diet low in saturated fats and highly processed foods. (2) HTN (hypertension): Code(s): I10 - Essential (primary) hypertension Category: Medical Plan: Controlled in office today. Continue amlodipine 5 mg daily, carvedilol 6.25 mg twice daily, lisinopril 40 mg daily. Check renal function electrolyte levels. Continue low-sodium diet. (3) CAD (coronary artery disease): Comment: hx PCI AC x3 to RCA 03/2023 Code(s): I25.10 - Atherosclerotic heart disease of [place] coronary artery without angina pectoris Category: Medical Plan: Stable without any recent anginal chest pain. Continue following with [facility]iology. Continue aspirin 81 mg daily. Continue carvedilol 6.25 mg twice daily and statin. (4) Pain of right great toe: Code(s): M79.674 - Pain in right toe(s) Category: Medical Plan: X-ray of the right great toe ordered. Analgesia as needed. Referral to podiatry place Plan Follow-up in 6 months. Labs as ordered. Reviewed most recent labs. X-ray of the right great toe ordered. Follow-up with Podiatry and Cardiology. Reviewed last colonoscopy note, Cologuard test ordered. Orders: Orders XR foot RT 2V Today M79.674 - Pain in right toe(s) Referrals Podiatry Referral M79.674 - Pain in right toe(s) Medications: Refilled ezetimibe 10 mg PO DAILY 90 tabs 1RF 90 days lisinopril 40 mg PO DAILY 90 tabs 1RF 90 days amlodipine 5 mg PO DAILY 90 tabs 1RF carvedilol 6.25 mg PO BID 180 tabs 1RF
[2025-05-23 08:17] VITALS: BP 132/60; PULSE 46; RESP 18; TEMP 36.2; O2SAT 97; BMI 27.6
== END 2025-05-23 08:37 | disposition home or self-care (01) ==
LOC: HO.HMCHD 08:11
PROVIDERS: PCP Physician Assistant; Visit Provider Physician Assistant
DX: E78.00 Pure hypercholesterolemia, unspecified (principal); I10 Essential (primary) hypertension; I25.10 Atherosclerotic heart disease of native coronary artery without angina pectoris; M79.674 Pain in right toe(s); L60.0 Ingrowing nail

== ENCOUNTER → 2025-05-23 09:04 | Outpatient (BNV) | payer MEDICARE, SELFPAY | PROVIDERS: PCP Physician Assistant; Visit Provider Radiology Diagnostic Radiology | DX: M19.071 Primary osteoarthritis, right ankle and foot (principal) | CPT/HCPCS: 73630 ==